=== PATIENT | male | born 1995 | race Caucasian/White ===

== ENCOUNTER 2016-11-24 10:07 | Emergency (ER) | payer OTHER ==
[~2016-11-24] VITALS: Ht 165.1 cm; Wt 60.5 kg
[2016-11-24 13:20] VITALS: BP 165/75
== END 2016-11-24 13:20 | disposition home or self-care (01) ==
LOC: ED 10:07
DX: S40.011A Contusion of right shoulder, initial encounter (principal); S61.311A Laceration without foreign body of left index finger with damage to nail, initial encounter; X58.XXXA Exposure to other specified factors, initial encounter; Y93.89 Activity, other specified; Y99.8 Other external cause status; Y92.89 Other specified places as the place of occurrence of the external cause

== ENCOUNTER 2018-02-06 18:19 | Emergency (ER) | payer OTHER ==
[~2018-02-06] VITALS: Ht 165.1 cm; Wt 64.0 kg
[2018-02-06 18:46] VITALS: Ht 165.1 cm; Wt 64.0 kg
[2018-02-06 19:34] VITALS: BP 106/74
== END 2018-02-06 19:35 | disposition home or self-care (01) ==
LOC: ED 18:19
DX: J06.9 Acute upper respiratory infection, unspecified (principal)

== ENCOUNTER 2018-08-28 01:52 | Emergency (ER) | payer OTHER ==
[~2018-08-28] VITALS: Ht 165.1 cm; Wt 64.4 kg
[2018-08-28 03:25] VITALS: BP 125/82
== END 2018-08-28 03:25 | disposition home or self-care (01) ==
LOC: ED 01:52
DX: L50.9 Urticaria, unspecified (principal)
CPT/HCPCS: J7512; Q0163

== ENCOUNTER 2018-11-05 21:22 | Emergency (ER) | payer OTHER ==
[~2018-11-05] VITALS: Ht 167.6 cm; Wt 64.0 kg
[2018-11-05 21:25] VITALS: Ht 167.6 cm; Wt 64.0 kg
[2018-11-05 22:57] VITALS: BP 116/51
== END 2018-11-05 22:57 | disposition home or self-care (01) ==
LOC: ED 21:22
DX: S91.332A Puncture wound without foreign body, left foot, initial encounter (principal); W22.8XXA Striking against or struck by other objects, initial encounter; Y93.89 Activity, other specified; Y92.89 Other specified places as the place of occurrence of the external cause; Y99.8 Other external cause status
CPT/HCPCS: Q0092

== ENCOUNTER 2020-03-21 15:14 | Emergency (ER) | payer OTHER ==
[~2020-03-21] VITALS: Ht 172.7 cm; Wt 70.3 kg
[2020-03-21 15:35] VITALS: Ht 172.7 cm; Wt 70.3 kg
[2020-03-21 17:03] VITALS: BP 130/87
== END 2020-03-21 17:03 | disposition home or self-care (01) ==
LOC: ED 15:14
DX: H10.12 Acute atopic conjunctivitis, left eye (principal)